=== PATIENT | male | born 1955 | race Caucasian/White ===

== ENCOUNTER 2021-02-28 10:23 | Outpatient (CLI) | payer OTHER | END 2021-02-28 10:24 | disposition home or self-care (01) | LOC: BICRAD 10:23 | PROVIDERS: ATTEND Family Medicine | DX: J20.9 Acute bronchitis, unspecified (principal); R10.84 Generalized abdominal pain; S30.851A Superficial foreign body of abdominal wall, initial encounter | CPT/HCPCS: 71046; 74018 ==